=== PATIENT | female | born 1970 | race Caucasian/White ===

== ENCOUNTER 2025-02-28 01:05 | Emergency (ER) | payer OTHER, SELFPAY ==
[2025-02-28 01:14] VITALS: BP 161/106; PULSE 114; RESP 18; TEMP 36.4; O2SAT 98; BMI 31.0
[2025-02-28 01:34] LABS: Hematocrit 36.8 % (37.0-47.0); Hemoglobin 12.2 g/dl (12.0-16.0); Mean Corpuscular HGB Conc 33.2 g/dl (31.0-35.0); Mean Corpuscular Hemoglobin 30.2 pg (27.0-33.0); Mean Corpuscular Volume 91.1 fL (80.0-98.0); NRBC Abs Auto 0.000 X10*3/uL (0.0-0.012); NRBC Pct Auto 0.0 /100WBC (0.0-0.2); Platelet Count 386 X10*3/uL (160-400); Red Blood Count 4.04 X10*6/uL (4.20-5.50); White Blood Count 12.1 X10*3/uL (4.8-10.8)
[2025-02-28 01:35] LABS: Appearance Urine Clear; Glucose Urine UA Negative (Negative); PH 5.5 (5.0-9.0); Specific Gravity - Urine 1.020 (1.005-1.025); UMIC TRIGGER UACC YES
[2025-02-28 01:42] LABS: UACC Culture Trigger YES
[2025-02-28 01:48] LABS: Alanine Aminotransferase 14 U/L (0-31); Albumin Level 4.6 g/dL (3.5-5.0); Alkaline Phosphatase 139 U/L (39-117); Anion Gap 15 (12-20); Aspartate Amino Transferase 16 U/L (5-31); Blood Urea Nitrogen 15 mg/dL (9-16); Calcium 9.4 mg/dL (8.4-10.2); Carbon Dioxide 20 mmol/L (22-29); Chloride 112 mmol/L (96-108); Creatinine Clr Calc Pharmacy 51.5; Estimated Glomerular Filt Rate 52; Potassium 3.7 mmol/L (3.3-5.1); Sodium 143 mmol/L (135-145); Total Protein 7.4 g/dL (6.5-8.0)
[2025-02-28 05:00] VITALS: BP 148/87; PULSE 106; RESP 16; TEMP 36.7; O2SAT 94
--- NOTE | 2025-02-28 06:15 | ED.ABDPAIN ---
HPI - Abdominal Pain General Chief Complaint: Abdominal Pain Stated Complaint: stomach pain Time Seen by Provider: 02/28/25 06:00 Source: patient Mode of arrival: ambulatory Limitations: no limitations History of Present Illness ED Provider: Dr. Berta Willett HPI narrative: Patient comes to the emergency room complaining left flank pain. Patient states that it has been intermittent. Patient states that she is prone to UTIs. Patient complaining of nausea, pressure with urination. Denies fever or chills. Related Data Previous Rx's ?Medication ?Instructions ?Recorded levofloxacin 500 mg tablet 500 mg PO DAILY #8 tabs 02/28/25 ondansetron 4 mg disintegrating 4 mg PO Q6H PRN nausea and 02/28/25 tablet vomiting #10 tabs Allergies Allergy/AdvReac Type Severity Reaction Status Date / Time Iodinated Contrast Media (IV Allergy Severe SYNCOPE Unverified 02/28/25 01:20 Dye, Iodine Containing) ibuprofen (From Motrin) Allergy Unknown SOB/RASH Unverified 02/28/25 01:20 penicillin V Allergy Unknown Unknown Verified 02/28/25 01:20 Penicillins Allergy Unknown SOB/RASH Unverified 02/28/25 01:20 Contast Dye Allergy Unknown Unknown Uncoded 02/28/25 01:20 Sulfa drugs Allergy Unknown Unknown Uncoded 02/28/25 01:20 Review of Systems Review of Systems Constitutional : No Weight loss, No Fever, No Chills, No Night Sweats, No Fatigue, No Malaise ENT/Mouth : No Hearing loss, No Ear Pain, No Nasal Congestion, No Sinus Pain, No Hoarseness, No sore throat, No Rhinorrhea, No Swallowing Difficulty Eyes: No Eye Pain, No Swelling, No Redness, No Foreign Body, No Discharge, No Vision Changes Cardiovascular : No Chest Pain, No SOB, No Dyspnea on Exertion, No Orthopnea, No Edema, No Palpitations Respiratory : No Cough, No Sputum, No Wheezing, No Smoke Exposure, No Dyspnea Gastrointestinal : No Nausea, No Vomiting, No Diarrhea, No Constipation, No abdominal Pain, No Hematochezia, No Melena Genitourinary : Complaining of dysuria, burning sensation, pressure with urination. States that the pain radiates towards the left flank Musculoskeletal : No joint pain, No Myalgias, No Joint Swelling Skin : No Skin Lesions, No rash Neuro : No Weakness, No Numbness, No Paresthesias, No Loss of Consciousness, No Dizziness, No Headache Psych : No Anxiety/Panic, No Depression, No SI/HI/AH/VH, No Social Issues, Heme/Lymph: No Bruising, No Bleeding,No Lymphadenopathy Endocrine : No Polyuria, No Polydipsia, No Temperature Intolerance [facility] Past Medical History Medical History Asthma Social History Social History Alcohol intake: never Smoked in Last 30 Days: Yes Use of substances other than those prescribed or required for medical reasons: No Advance Directives: No Advance Directives Information Provided: Yes Patient : No Physical Exam ED Exam Exam: Appearance: Alert. Oriented X3. No acute distress. Well-appearing Eyes: Pupils equal, round and reactive to light. ENT: Pharynx normal. Neck: Normal inspection. Neck supple. No lymph nodes noted. No crepitus CVS: Normal heart rate and rhythm. Pulses normal. Normal S1 and S2 Respiratory: No respiratory distress. Breath sounds normal. No Wheezing. No rales Abdomen: Soft and nontender. No rigidity. No distention. Mild CVA Skin: Skin warm and dry. Normal skin color. Normal skin turgor. Extremities: No lower extremity edema. No Lacerations. No Rash Neuro: Oriented X 3. No motor deficit. No sensory deficit. Moving all extremities. No slurred speech. CN 2 through 12 grossly intact Psych: calm, cooperative, normal affect Vital Signs: Vital Signs - 24 hr 02/28/25 01:14 02/28/25 05:00 02/28/25 06:49 Temperature 97.6 F 98.1 F Pulse Rate 114 H 106 H Respiratory Rate 18 16 14 Blood Pressure 161/106 H 148/87 H Pulse Oximetry 98 94 Oxygen Delivery Method Room Air Room Air 02/28/25 06:53 Temperature 98.4 F Pulse Rate 81 Respiratory Rate 14 Blood Pressure 137/80 Pulse Oximetry 98 Oxygen Delivery Method Room Air BMI result Body Mass Index 31.0 Course Course Course Narrative: This patient has been seen by my colleague and discharged with a prescription for levofloxacin. After discharge the patient returned to the triage window requesting medication for nausea. My colleague had already left the department at the end of her shift. The patient requested that any prescriptions at this point be sent to the [facility] ([facility]] pharmacy in [place]. I sent a prescription for ondansetron to this pharmacy. I also change the pharmacy for the patient has previously prescribed levofloxacin to the same pharmacy. Medical Decision Making Medical Decision Making [facility] Narrative: My interpretation of labs: Patient's white blood cell count 12.1, no other significant abnormality in patient's hematology and chemistry, urinalysis positive for UTI. Clinically, patient has pyelonephritis. No fever or chills, no episodes of hypotension, sepsis is not suspected. Patient was given IV ketorolac and p.o. levofloxacin in the emergency room. Patient states that the pain that she is feeling in her flank is more constant, not sharp, more achiness sensation. It is less likely the patient has a kidney stone Differential Diagnosis Differential Diagnoses: The differential diagnosis associated with the presentation includes (Pyelonephritis, UTI, ureterolithiasis, musculoskeletal pain) Admission/Observation Consideration of admission/observation: Escalation of care including admission/observation considered (Given patient's initial presentation ,observation was considered) Lab Data [facility] Lab Attestation statement: I reviewed the patient's lab results. 02/28/25 01:30 02/28/25 01:30 Labs: Lab Results 02/28/25 Range/Units 01:30 WBC 12.1 H (4.8-10.8) X10*3/uL RBC 4.04 L (4.20-5.50) X10*6/uL Hgb 12.2 (12.0-16.0) g/dl Hct 36.8 L (37.0-47.0) % MCV 91.1 (80.0-98.0) fL MCH 30.2 (27.0-33.0) pg MCHC 33.2 (31.0-35.0) g/dl RDW 15.3 (11.0-16.0) % Plt Count 386 (160-400) X10*3/uL MPV 8.7 L (9.4-12.3) fL Absolute Nucleated RBC 0.000 (0.0-0.012) X10*3/uL Nucleated RBC % (auto) 0.0 (0.0-0.2) /100WBC Sodium 143 (135-145) mmol/L Potassium 3.7 (3.3-5.1) mmol/L Chloride 112 H (96-108) mmol/L Carbon Dioxide 20 L (22-29) mmol/L Anion Gap 15 (12-20) BUN 15 (9-16) mg/dL Creatinine 1.08 (0.5-1.4) mg/dL Estim Creat Clear Calc 51.5 Estimated GFR 52 Random Glucose 154 H (60-115) mg/dL Calcium 9.4 (8.4-10.2) mg/dL Total Bilirubin 0.3 (0.0-1.0) mg/dL AST 16 (5-31) U/L ALT 14 (0-31) U/L Alkaline Phosphatase 139 H (39-117) U/L Total Protein 7.4 (6.5-8.0) g/dL Albumin 4.6 (3.5-5.0) g/dL Urine Color Dark Yellow Urine Appearance Clear Urine pH 5.5 (5.0-9.0) Ur Specific Lane 1.020 (1.005-1.025) Urine Protein 30 (1+) H (Neg-Trace) mg/dL Urine Glucose (UA) Negative (Negative) mg/dL Urine Ketones 15 (Negative) mg/dL Urine Blood Negative (Negative) Urine Nitrite Positive H (Negative) Ur Leukocyte Esterase Small (1+) H (Negative) Urine RBC 0-2 (0-2) /HPF Urine WBC 0-5 (0-5) /HPF Ur Squamous Epith Cells 3-5 (0-2) /HPF Urine Bacteria 4+ (None Seen) Hyaline Casts 0-2 (0-2) /LPF Medications Administered Discontinued Medications Generic Name Dose Route Start Last Admin Trade Name Mason PRN Reason Stop Dose Admin Levofloxacin 500 mg 02/28/25 06:13 02/28/25 06:50 Levofloxacin 500 Mg Tablet PO 02/28/25 06:14 500 mg ONCE ONE Administration Morphine Sulfate 1 mg 02/28/25 06:14 02/28/25 06:49 Morphine Sulfate 2 Mg/Ml Cartridge IVPUSH 02/28/25 06:15 1 mg ONCE ONE Administration Protocol Critical Care Time Critical Care Time Critical Care Time: Yes Total Critical Care Time: 35 Attestation: I have personally provided critical care time. Time includes review of lab data, radiology results, discussion with consultants, and monitoring for potential decompensation. Intervention performed as documented. Discharge Plan Discharge Clinical Impression: Pyelonephritis Patient Disposition: Home, Self-Care Instructions: Kidney Infection (ED) Additional Instructions: Please follow-up with your primary care physician tomorrow. If you have any worsening or new symptoms, please return to the emergency room or call 911 Prescriptions: New ondansetron 4 mg tablet,disintegrating 4 mg PO Q6H PRN (Reason: nausea and vomiting) Qty: 10 0RF levofloxacin 500 mg tablet 500 mg PO DAILY Qty: 8 0RF Interventions: ED Discharge Assessment Last Done: 02/28/25 06:53 Discharge Date/Time: 02/28/25 07:01 Print Language: Palauan
[2025-02-28 06:49] VITALS: RESP 14
[2025-02-28 06:53] VITALS: BP 137/80; PULSE 81; RESP 14; TEMP 36.9; O2SAT 98
== END 2025-02-28 07:01 | disposition home or self-care (01) ==
PROVIDERS: Emergency Provider Emergency Medicine; PCP Nurse Practitioner Family
DX: N12 Tubulo-interstitial nephritis, not specified as acute or chronic (principal); Z87.440 Personal history of urinary (tract) infections; Z79.899 Other long term (current) drug therapy
CPT/HCPCS: 36415; 80053; 81001; 85027; 87086; 87088; 87186; 96374; 99284; J2270